=== PATIENT | male | born 1940 | race Caucasian/White ===

== ENCOUNTER 2019-05-05 15:31 | Emergency (ER) | payer MEDICARE ==
[~2019-05-05 15:31] MED LIST: Amiodarone 150 MG/3 ML VIAL ONE
[2019-05-05] MEDS ORDERED: Amiodarone In Dextrose 100 ML ONE (15:52)
[2019-05-05] MEDS ORDERED: Lidocaine 1% PF 5 ML VIAL ONE (16:02)
[2019-05-05] MEDS ORDERED: Ondansetron PF 4 MG/2 ML Vial ONE (16:02)
[2019-05-05 16:26] LABS: ALT (SGPT) 32 U/L (8-55); AST (SGOT) 25 U/L (5-34); Albumin 4.6 g/dL (3.4-4.8); Alkaline Phosphatase 70 U/L (40-110); Anion Gap 16 mmol/L (10-20); BUN (Urea Nitrogen) 32 mg/dL (8.4-25.7); Calc. Creatinine Clearance 0 mL/min (70-130); Calcium 9.8 mg/dL (7.8-10.44); Carbon Dioxide 29 mmol/L (23-31); Chloride 102 mmol/L (98-107); Estimated GFR-MDRD 42; Globulin 2.6 g/dL (2.4-3.5); Glucose 117 mg/dL (83-110); Protein, Total 7.2 g/dL (5.8-8.1); Sodium 143 mmol/L (136-145)
[2019-05-05 16:30] LABS: Eosinophils 3 % (0-10); Hemoglobin 11.1 g/dL (14.0-18.0); Lymphocytes 22 % (21-51); MDiff Complete? YES; Mean Corpuscular Hemoglobin 33.9 pg (27.0-31.0); Mean Platelet Volume 6.8 fL (7.4-10.4); Monocytes 8 % (0-10); Neutrophil 67 % (42-75); Platelet Count 172 thou/uL (130-400); RBC Distribution Width 13.5 % (11.5-14.5); Red Blood Cell (RBC) Count 3.28 mill/uL (4.70-6.10); White Blood Cell (WBC) Count 5.9 thou/uL (4.8-10.8)
[2019-05-05 16:44] LABS: CKMB 1.7 ng/mL (0-6.6)
--- NOTE | 2019-05-05 18:05 | RAD ---
PORTABLE CHEST: 05/05/19 An AP portable film at 1608 is compared with a 03/01/19 study. Cardiomegaly is about the same as before. An AICD is in place. The right pulmonary artery seems slig htly larger than it was before, but this could just be due to the patient being turned slightly which makes it more prominent. I see no focal pulmonary infiltrate. Other studies may be needed to see the chest better depending upon the symptoms. IMPRESSION: Cardiomegaly. See discussion above. POS: HOME
== END 2019-05-05 17:27 | disposition short-term general hospital (02) ==
LOC: BURERS 15:31
DX: T82.199A Other mechanical complication of unspecified cardiac device, initial encounter (principal); I49.8 Other specified cardiac arrhythmias; I25.10 Atherosclerotic heart disease of native coronary artery without angina pectoris; I25.2 Old myocardial infarction; I48.91 Unspecified atrial fibrillation; E78.5 Hyperlipidemia, unspecified; I10 Essential (primary) hypertension; M19.90 Unspecified osteoarthritis, unspecified site; E03.9 Hypothyroidism, unspecified; I13.0 Hypertensive heart and chronic kidney disease with heart failure and stage 1 through stage 4 chronic kidney disease, or unspecified chronic kidney disease; N18.9 Chronic kidney disease, unspecified; I50.9 Heart failure, unspecified; Z87.891 Personal history of nicotine dependence; Z79.899 Other long term (current) drug therapy
CPT/HCPCS: 71045; 80053; 82553; 83735; 83880; 84484; 85025; 93005; 96361; 96374; 99291; J0282; 36415; J2001; J2405; J7070

== ENCOUNTER 2021-08-17 09:54 | Outpatient (CLI) | payer MEDICARE ==
[2021-08-17 11:26] LABS: Anion Gap 15 mmol/L (10-20); BUN (Urea Nitrogen) 32 mg/dL (8.4-25.7); Calc. Creatinine Clearance 0 mL/min (70-130); Calcium 9.1 mg/dL (7.8-10.44); Carbon Dioxide 29 mmol/L (23-31); Chloride 105 mmol/L (98-107); Glucose 79 mg/dL (83-110); Potassium 5.3 mmol/L (3.5-5.1); Sodium 144 mmol/L (136-145)
== END 2021-08-17 09:55 | disposition home or self-care (01) ==
LOC: BURLABSP 09:54
PROVIDERS: ATTEND Family Medicine
DX: N17.9 Acute kidney failure, unspecified (principal); I50.23 Acute on chronic systolic (congestive) heart failure; N18.9 Chronic kidney disease, unspecified; I48.91 Unspecified atrial fibrillation
CPT/HCPCS: 80048